=== PATIENT | male | born 1945 | race Native Hawaiian/Other Pacific Islander ===

== ENCOUNTER 2016-07-16 13:01 | Outpatient (CLI) | payer OTHER ==
[2016-07-16 13:30] LABS: PLATELET COUNT 254 K/uL (142-355)
[2016-07-16 17:13] LABS: POTASSIUM 4.5 mmol/L (3.6-5.2); SODIUM 136 mmol/L (136-145)
== END 2016-07-16 14:00 | disposition home or self-care (01) ==
LOC: LAB 13:01
PROVIDERS: Family Medicine
DX: I10 Essential (primary) hypertension (principal); E78.4 Other hyperlipidemia; K21.9 Gastro-esophageal reflux disease without esophagitis; R05 Cough; E55.9 Vitamin D deficiency, unspecified; Z12.5 Encounter for screening for malignant neoplasm of prostate; E78.00 Pure hypercholesterolemia, unspecified
CPT/HCPCS: 80053; 80061; 81000; 82043; 82306; 82570; 83735; 84153; 84439; 84443; 85027